=== PATIENT | male | born 1985 ===

== ENCOUNTER 2022-12-10 04:54 | Emergency (ER) | payer OTHER ==
[2022-12-10] MEDS ORDERED: Sodium Chloride 0.9% 10 ML Syringe FLUSH PRN (05:17)
[2022-12-10 05:25] LABS: HEMATOCRIT 42.1 % (40.0-54.0); HEMOGLOBIN 14.4 g/dL (13.0-18.0); MEAN CORPUSCULAR HEMOGLOBIN 30.4 pg (27.0-32.0); MEAN CORPUSCULAR HGB CONC 34.2 g/dL (31.0-35.0); MEAN PLATELET VOLUME 9.4 fL (6.0-10.0); RED BLOOD CELL COUNT 4.74 M/uL (4.50-6.50); RED CELL DISTRIBUTION WIDTH 12.4 % (11.0-16.0); WHITE BLOOD CELL COUNT,WBC 15.7 K/uL (4.0-11.0)
[2022-12-10 05:42] LABS: A/G RATIO 1.3 (0.8-2.0); ALBUMIN 4.3 g/dL (3.4-5.0); ANION GAP 11.5 mmol/L (5.0-15.0); BILIRUBIN TOTAL 0.4 mg/dL (0.0-1.0); BUN/CREATININE RATIO 9.1 (6-25); CALCIUM 8.5 mg/dL (8.5-10.1); CARBON DIOXIDE,CO2 26.6 mmol/L (21.0-32.0); CREATININE 0.77 mg/dL (0.70-1.30); EST CRCL DRUG DOSING (CG) 128.8 mL/min; POTASSIUM,K 3.1 mmol/L (3.5-5.1); PROTEIN TOTAL,TP 7.6 g/dL (6.4-8.2); TROPONIN I HIGH SENSITIVITY 4.2 pg/ml (<=60.4)
[2022-12-10] MEDS ORDERED: NS + KCl 20mEq/L 1,000 ML IV SCH (05:45)
[2022-12-10] MEDS ORDERED: cefTRIAXone 1 GM Vial IVPUSH SCH (06:00)
[2022-12-10] MEDS ORDERED: cefTRIAXone 1 GM Vial ONE (06:01)
[2022-12-10] MEDS ORDERED: HYDROmorphone 2 MG/ML Syringe ONE (06:02)
[2022-12-10] MEDS ORDERED: HYDROmorphone 2 MG/ML Syringe IVPUSH ONE (06:03)
[2022-12-10] MEDS ORDERED: Lidocaine 1% with EPINEPHrine 1:100,000 50 ML MDV INFILT ONE (06:49)
[2022-12-10] MEDS ORDERED: Mupirocin Oint 22 GM Tube TOP ONE (06:49)
[2022-12-10] MEDS ORDERED: Acetaminophen/HYDROcodone 325-5 MG Tab ONE (10:00)
[2022-12-10] MEDS ORDERED: Amoxicillin 500 MG Cap ONE (10:00)
== END 2022-12-10 11:00 | disposition home or self-care (01) ==
LOC: LB.ED 04:54
DX: S01.81XA Laceration without foreign body of other part of head, initial encounter (principal); F10.120 Alcohol abuse with intoxication, uncomplicated; E87.6 Hypokalemia; T07.XXXA Unspecified multiple injuries, initial encounter; V48.0XXA Car driver injured in noncollision transport accident in nontraffic accident, initial encounter; Y90.8 Blood alcohol level of 240 mg/100 ml or more
CPT/HCPCS: 12013; 36415; 70450; 70486; 71250; 72125; 80053; 80307; 84484; 85027; 93005; 96365; 96366; 96375; 99284-25; A0425; A0429; A9270-GY; J0696; J1170; J3480